=== PATIENT | male | born 1955 | race Caucasian/White ===

== ENCOUNTER 2016-09-17 21:58 | Observation (INO) | payer BC ==
[2016-09-17 22:36] LABS: Appearance,Urine Clear (Clear); Bilirubin,Urine Negative (Negative); Glucose,Urine (UA) 4+ (Negative); Ketones,Urine Negative (Negative); Leukocyte Esterase,Urine Moderate (Negative); Mucus,Urine Rare /hpf; Nitrite,Urine Negative (Negative); Particle Count 2298; Protein,Urine 2+ (Negative); RBC,Urine 34 /hpf (0-5); Specific Gravity,Urine 1.009 (1.001-1.035); UA Billing (MACRO vs. MICRO) MICRO; Urobilinogen,Urine <2.0 mg/dL (<2.0); WBC,Urine 18 /hpf (0-5)
[2016-09-17 22:49] LABS: Glucose,Whole Blood 422 mg/dL (75-99)
[2016-09-17] MEDS ORDERED: SODIUM CHLORIDE 0.9% 1,000 ML IV ONE (22:51)
--- NOTE | 2016-09-17 22:51 | ED ---
Male Urogenital HPI - General Chief complaint: Urogenital Stated complaint: trouble urinating Time Seen by Provider: 09/17/16 22:13 Source: patient, RN notes reviewed Mode of arrival: ambulatory Limitations: no limitations - History of Present Illness Initial comments: 60-year-old male presents emergency Department chief complaint dysuria or incontinence days. Patient states that he's had some hesitancy and some dribbling noted. He has no known state issues. Patient states she has no abdominal pain no flank pain denies fever or chills. Patient states that today he felt that it was more difficult to urinate though he still able to urinate. Patient states he has no noticeable hematuria. Patient states he did pass kidney stone years ago states it was painful at that time. Patient states he has not had his prostate checked recently toys had a checkup past with a normal PSA. - Related Data Home Medications Medication Instructions Recorded Confirmed ALPRAZolam [Xanax] 0.25 mg PO DAILY PRN 10/01/15 09/17/16 Allergies Allergy/AdvReac Type Severity Reaction Status Date / Time No Known Allergies Allergy Verified 09/17/16 22:32 Review of Systems ROS Statement: Those systems with pertinent positive or pertinent negative responses have been documented in the HPI. ROS Other: All systems not noted in ROS Statement are negative. Past Medical History Past Medical History: No Reported History History of Any Multi-Drug Resistant Organisms: None Reported Past Surgical History: Hernia Repair Additional Past Surgical History / Comment(s): cyst removed,lypoma removal Past Psychological History: Anxiety Smoking Status: Former smoker Past Alcohol Use History: Rare Past Drug Use History: None Reported General Exam Limitations: no limitations General appearance: alert, in no apparent distress Head exam: Present: atraumatic, normocephalic, normal inspection Neck exam: Present: normal inspection, full ROM. Absent: tenderness, meningismus, lymphadenopathy Respiratory exam: Present: normal lung sounds bilaterally. Absent: respiratory distress, wheezes, rales, rhonchi, stridor Cardiovascular Exam: Present: regular rate, normal rhythm, normal heart sounds. Absent: systolic murmur, diastolic murmur, rubs, gallop, clicks GI/Abdominal exam: Present: soft, normal bowel sounds. Absent: distended, tenderness, guarding, rebound, rigid Back exam: Absent: CVA tenderness (R), CVA tenderness (L) Neurological exam: Present: alert, oriented X3, CN II-XII intact Skin exam: Present: warm, dry, intact, normal color. Absent: rash Course Vital Signs 09/17/16 21:59 Temperature 97.0 F L Pulse Rate 88 Respiratory 18 Rate Blood Pressure 199/116 O2 Sat by Pulse 96 Oximetry Medical Decision Making - Medical Decision Making 60-year-old male presented for dysuria. Patient was found have 4+ glucose and urine. Patient's blood sugars for 20 Set diabetic. Patiently For suspected UTI and new onset diabetic. - Lab Data Result diagrams: 09/17/16 22:58 09/17/16 22:58 Lab Results 09/17/16 09/17/16 09/17/16 Range/Units 22:16 22:45 22:58 WBC 10.0 (3.8-10.6) k/uL RBC 5.07 (4.30-5.90) m/uL Hgb 15.8 (13.0-17.5) gm/dL Hct 48.1 (39.0-53.0) % MCV 94.9 (80.0-100.0) fL MCH 31.1 (25.0-35.0) pg MCHC 32.8 (31.0-37.0) g/dL RDW 13.8 (11.5-15.5) % Plt Count 267 (150-450) k/uL Neutrophils % 76 % Lymphocytes % 15 % Monocytes % 4 % Eosinophils % 3 % Basophils % 1 % Neutrophils # 7.6 (1.3-7.7) k/uL Lymphocytes # 1.5 (1.0-4.8) k/uL Monocytes # 0.4 (0-1.0) k/uL Eosinophils # 0.3 (0-0.7) k/uL Basophils # 0.1 (0-0.2) k/uL Sodium (137-145) mmol/L Potassium (3.5-5.1) mmol/L Chloride (98-107) mmol/L Carbon Dioxide (22-30) mmol/L Anion Gap mmol/L BUN (9-20) mg/dL Creatinine (0.66-1.25) mg/dL Est GFR (MDRD) Af Amer (>60 ml/min/1.73 sqM) Est GFR (MDRD) Non-Af (>60 ml/min/1.73 sqM) Glucose (74-99) mg/dL POC Glucose (mg/dL) 422 H (75-99) mg/dL POC Glu Deck Builder ID Madhuri Jacob Calcium (8.4-10.2) mg/dL Total Bilirubin (0.2-1.3) mg/dL AST (17-59) U/L ALT (21-72) U/L Alkaline Phosphatase (38-126) U/L Total Protein (6.3-8.2) g/dL Albumin (3.5-5.0) g/dL Urine Color Yellow Urine Appearance Clear (Clear) Urine pH 6.0 (5.0-8.0) Ur Specific [place] 1.009 (1.001-1.035) Urine Protein 2+ H (Negative) Urine Glucose (UA) 4+ H (Negative) Urine Ketones Negative (Negative) Urine Blood Moderate H (Negative) Urine Nitrate Negative (Negative) Urine Bilirubin Negative (Negative) Urine Urobilinogen <2.0 (<2.0) mg/dL Ur Leukocyte Esterase Moderate H (Negative) Urine RBC 34 H (0-5) /hpf Urine WBC 18 H (0-5) /hpf Urine Mucus Rare H (None) /hpf 09/17/16 Range/Units 22:58 WBC (3.8-10.6) k/uL RBC (4.30-5.90) m/uL Hgb (13.0-17.5) gm/dL Hct (39.0-53.0) % MCV (80.0-100.0) fL MCH (25.0-35.0) pg MCHC (31.0-37.0) g/dL RDW (11.5-15.5) % Plt Count (150-450) k/uL Neutrophils % % Lymphocytes % % Monocytes % % Eosinophils % % Basophils % % Neutrophils # (1.3-7.7) k/uL Lymphocytes # (1.0-4.8) k/uL Monocytes # (0-1.0) k/uL Eosinophils # (0-0.7) k/uL Basophils # (0-0.2) k/uL Sodium 137 (137-145) mmol/L Potassium 4.4 (3.5-5.1) mmol/L Chloride 101 (98-107) mmol/L Carbon Dioxide 23 (22-30) mmol/L Anion Gap 13 mmol/L BUN 17 (9-20) mg/dL Creatinine 1.00 (0.66-1.25) mg/dL Est GFR (MDRD) Af Amer >60 (>60 ml/min/1.73 sqM) Est GFR (MDRD) Non-Af >60 (>60 ml/min/1.73 sqM) Glucose 398 H (74-99) mg/dL POC Glucose (mg/dL) (75-99) mg/dL POC Glu Deck Builder ID Calcium 9.1 (8.4-10.2) mg/dL Total Bilirubin 0.6 (0.2-1.3) mg/dL AST 14 L (17-59) U/L ALT 25 (21-72) U/L Alkaline Phosphatase 78 (38-126) U/L Total Protein 6.8 (6.3-8.2) g/dL Albumin 4.0 (3.5-5.0) g/dL Urine Color Urine Appearance (Clear) Urine pH (5.0-8.0) Ur Specific [place] (1.001-1.035) Urine Protein (Negative) Urine Glucose (UA) (Negative) Urine Ketones (Negative) Urine Blood (Negative) Urine Nitrate (Negative) Urine Bilirubin (Negative) Urine Urobilinogen (<2.0) mg/dL Ur Leukocyte Esterase (Negative) Urine RBC (0-5) /hpf Urine WBC (0-5) /hpf Urine Mucus (None) /hpf Disposition Clinical Impression: UTI (urinary tract infection), Diabetes mellitus, new onset Disposition: ADMITTED IP TO THIS HOSP Condition: Stable
[2016-09-17 23:07] LABS: Basophils # (A) 0.1 k/uL (0-0.2); Basophils % (A) 1 %; CH 31.5; CHCM 33.3; Eosinophils # (A) 0.3 k/uL (0-0.7); Eosinophils % (A) 3 %; HCT 48.1 % (39.0-53.0); HDW 2.92; HGB 15.8 gm/dL (13.0-17.5); Luc # (Auto) 0.15; Luc % (Auto) 2; Lymphocytes # (A) 1.5 k/uL (1.0-4.8); Lymphocytes % (A) 15 %; MCH 31.1 pg (25.0-35.0); MCHC 32.8 g/dL (31.0-37.0); MCV 94.9 fL (80.0-100.0); Mean Platelet Volume 6.4; Monocytes # (A) 0.4 k/uL (0-1.0); Monocytes % (A) 4 %; Neutrophils # (A) 7.6 k/uL (1.3-7.7); Neutrophils % (A) 76 %; RBC 5.07 m/uL (4.30-5.90); RDW 13.8 % (11.5-15.5); WBC (Perox) 10.41
[2016-09-17 23:16] LABS: ALT 25 U/L (21-72); AST 14 U/L (17-59); Alkaline Phosphatase 78 U/L (38-126); Anion Gap 13 mmol/L; Blood Urea Nitrogen 17 mg/dL (9-20); Calcium 9.1 mg/dL (8.4-10.2); Carbon Dioxide 23 mmol/L (22-30); Chloride 101 mmol/L (98-107); Glucose 398 mg/dL (74-99); Non-African American GFR(MDRD) >60 (>60 ml/min/1.73 sqM); Potassium 4.4 mmol/L (3.5-5.1); Sodium 137 mmol/L (137-145); Total Bilirubin 0.6 mg/dL (0.2-1.3); Total Protein 6.8 g/dL (6.3-8.2)
[2016-09-17] MEDS ORDERED: NALOXONE 0.4 MG/ML 1 ML VIAL IV PRN (23:52)
[2016-09-17] MEDS ORDERED: ACETAMINOPHEN TAB 325 MG TAB PO PRN (23:52)
[2016-09-17] MEDS ORDERED: ONDANSETRON 4 MG/2 ML VIAL IVP PRN (23:52)
[2016-09-17] MEDS ORDERED: metFORMIN 500 MG TAB PO STA (23:55)
[2016-09-18 00:18] LABS: Glucose,Whole Blood 337 mg/dL (75-99)
[2016-09-18] MEDS ORDERED: LEVOFLOXACIN 750MG-D5W PMX 750 MG in DEXTROSE/WATER 1 150ML.BAG IVPB STA (00:43)
[2016-09-18 01:18] VITALS: BMI 48.8
[2016-09-18] MEDS: SODIUM CHLORIDE 0.9% 1,000 ML IV SCH ×2 (05:55→08:27)
[2016-09-18 07:30] LABS: Glucose,Whole Blood 284 mg/dL (75-99)
[2016-09-18 07:34] LABS: Hemoglobin A1C 10.3 % (4.2-6.1)
[2016-09-18] MEDS: INSULIN LISPRO (humaLOG) 300 UNIT/3 ML VIAL SQ SCH ×3 (08:26→18:50)
[2016-09-18 09:22] VITALS: BP 140/90; PULSE 87; RESP 15; TEMP 98.1
[2016-09-18] MEDS ORDERED: TAMSULOSIN 0.4 MG CAP.ER.24H PO SCH (11:00)
[2016-09-18 12:02] LABS: Glucose,Whole Blood 243 mg/dL (75-99)
--- NOTE | 2016-09-18 15:03 | HP ---
H&P AND DISCHARGE SUMMARY DATE OF ADMISSION: Patient is a 60-year-old who came in with dysuria and patient has urinary urgency and urinary frequency and hesitancy with dribbling urine, and patient ( ) ultrasound of the urinary bladder. Patient is actually retaining urine. Patient probably has benign prostatic hypertrophy. I ordered ( ) outpatient prostate exam. Patient will be started on tamsulosin. Tamsulosin takes about 4 days to be effective. In the meantime, patient will be taught how to do straight catheterization. Patient will be discharged. Patient probably has urinary tract infection, too. Patient has highly elevated WBC in the urine. Patient responded well to ceftriaxone. Patient will be discharged on ciprofloxacin. Patient does not know if he is diabetic. Patient has highly elevated blood sugars with hemoglobin A1c of 10. Patient tolerated ( ) metformin very well. I will go ahead and discharge him on ( ) mg twice a day of metformin. Patient will be asked to take his blood sugars daily twice a day. Patient may need a second diabetic medication. Patient will be asked to follow up with his primary care physician in 3 to 5 days. If patient continues to have UTI-like symptoms, ( ) needs to be considered at that time. Home medications include alprazolam. ROS: All other systems were reviewed and were negative. ALLERGIES: NO KNOWN DRUG ALLERGIES. PAST MEDICAL HISTORY: None. SURGICAL HISTORY: Hernia repair. SOCIAL HISTORY: Former smoker. Quit smoking years ago. Denied any alcohol abuse or any drug abuse. PAST PSYCHIATRIC HISTORY: Anxiety. FAMILY HISTORY: Denied and family history of hypertension, diabetes mellitus. PHYSICAL EXAMINATION: VITAL SIGNS: Temperature 97.2, pulse of 88, respiratory rate of 18. Blood pressure is 150/90. Saturating at 96% on room air. GENERAL: Very pleasant obese gentleman. Alert and oriented x3. HEENT: Pupils are round and equally reacting to light. EOMI. No scleral icterus. No conjunctival pallor. Normocephalic, atraumatic. No pharyngeal erythema. No thyromegaly. CARDIOVASCULAR: S1 and S2 present. No murmurs, rubs, or gallops. PULMONARY: Chest is clear to auscultation, no wheezing or crackles. ABDOMEN: Soft, nontender, nondistended, normoactive bowel sounds. No palpable organomegaly. MUSCULOSKELETAL: No joint swelling or deformity. EXTREMITIES: No cyanosis, clubbing, or pedal edema. NEUROLOGICAL: Gross neurological examination did not reveal any focal deficits. SKIN: No rashes. LABORATORY DATA: Significant for elevated blood glucose of 398. Patient has mildly elevated creatinine of 1.2, which improved at this point of time. The urine as mentioned above. He has elevated RBC and WBC, 2+ protein, 4+ glucose. He does not have any leukocytosis or ( ). ASSESSMENT AND PLAN: 1. Newly diagnosed diabetes mellitus. Patient will be started on metformin. Patient may need a second medication. Patient's hemoglobin A1C is 10. 2. Possible benign prostatic hypertrophy. Management as mentioned above. 3. Possible urinary tract infection. Will follow up urine cultures. Patient will be started on ciprofloxacin for UTI symptoms. 4. Obesity. Counseling was provided. 5. Acute renal failure secondary to obstructive uropathy, probably, which has gotten better actually with IV fluids. Patient will do straight catheterization which will address the obstructive uropathy issue. Patient may has a prerenal component of renal failure or prerenal azotemia, which improved with IV fluids. The patient will follow up with his primary care physician in 3 to 5 days. Activity as tolerated. Diabetic 1800-calorie diet. Blood sugar checks twice a day. Patient will be discharged today. This dictation is both H&P and discharge summary. [facility]
[2016-09-18 16:56] LABS: Glucose,Whole Blood 192 mg/dL (75-99)
== END 2016-09-18 18:30 | disposition home or self-care (01) ==
LOC: EC 21:58 → INTOOBSV 23:49 → 3SUR 23:49
PROVIDERS: ADMIT Hospitalist; ATTEND Hospitalist
DX: E11.65 Type 2 diabetes mellitus with hyperglycemia (principal); N39.0 Urinary tract infection, site not specified; N17.9 Acute kidney failure, unspecified; N13.9 Obstructive and reflux uropathy, unspecified; F41.9 Anxiety disorder, unspecified; Z87.442 Personal history of urinary calculi; Z87.891 Personal history of nicotine dependence; E66.9 Obesity, unspecified
CPT/HCPCS: 96361; 99284; 51798; 36415 ×2; 80053; 83036; 85025; 81001; 87491; 87591; 87086; G0378 ×2; G0103; J1956; 96365

== ENCOUNTER → 2018-10-18 | Outpatient (CLI) | payer BC ==
--- NOTE | 2018-10-18 08:59 | US ---
EXAMINATION TYPE: US venous doppler duplex LE BI DATE OF EXAM: 10/18/2018 7:39 AM COMPARISON: NONE CLINICAL HISTORY: 62-year-old male R22.43 Localized swelling, mass and lump, lower li. Edema, discolo ration left lower leg SIDE PERFORMED: bilateral TECHNIQUE: The lower extremity deep venous system is examined utilizing real time linear array sonog ana with graded compression, doppler sonography and color-flow sonography. VESSELS IMAGED: External Iliac Vein (EIV) Common Femoral Vein Deep Femoral Vein Greater Saphenous Vein * Femoral Vein Popliteal Vein Small Saphenous Vein * Proximal Calf Veins (* superficial vessels) Right Leg: No evidence of DVT as visualized Left Leg: No evidence of DVT as visualized IMPRESSION: No evidence for DVT within the bilateral lower extremities imaged from the groin to the upper calves.
== END ==
LOC: RADUSWWP 07:36
PROVIDERS: ATTEND Family Medicine
DX: R22.43 Localized swelling, mass and lump, lower limb, bilateral (principal); R05 Cough; Z78.9 Other specified health status
CPT/HCPCS: 93970

== ENCOUNTER 2023-08-18 15:03 | Emergency (ER) | payer BC ==
[2023-08-18 15:19] VITALS: BP 171/102; PULSE 121; RESP 16; TEMP 97.8
[2023-08-18 15:45] LABS: Appearance,Urine Clear (Clear); Bilirubin,Urine Negative (Negative); Blood,Urine Large (Negative); Color,Urine Yellow; Glucose,Urine (UA) Negative (Negative); Ketones,Urine Negative (Negative); Leukocyte Esterase,Urine Negative (Negative); Mucus,Urine Rare /hpf; Nitrite,Urine Negative (Negative); Protein,Urine 1+ (Negative); RBC,Urine >182 /hpf (0-5); Specific Gravity,Urine 1.021 (1.001-1.035); Squamous Epithelial Cell,Urine <1 /hpf (0-4); WBC,Urine 1 /hpf (0-5)
--- NOTE | 2023-08-18 15:45 | ED ---
General Adult HPI - General Source: patient, RN notes reviewed Mode of arrival: ambulatory Limitations: no limitations <Marichuy Germain - Last Filed: 08/18/23 15:44> <Paddy Rodrigues - Last Filed: 08/18/23 19:58> - General Chief complaint: Urogenital Stated complaint: lower abd pain Time Seen by Provider: 08/18/23 15:44 - History of Present Illness Initial comments: This is a 67 year old male who presents to the emergency department for left flank pain and lower abdominal pain. Reports dark urine as well. He has a hx of kidney stones and states that this feels the same. (Marichuy Germain) This is a 67-year-old male presents emergency Department complaining of left flank pain and lower abdominal pain. Patient states she has a history of kidney stones per patient states the kidney stone pain felt exactly like this in the past. Patient denies any hematuria or dysuria. Patient denies any fever chills per patient denies any nausea vomiting. Patient denies any other issues at this time. (Paddy Rodrigues) - Related Data Home Medications Medication Instructions Recorded Confirmed ALPRAZolam [Xanax] 0.25 mg PO DAILY PRN 10/01/15 09/17/16 Previous Rx's Medication Instructions Recorded Ciprofloxacin HCl [Cipro] 500 mg PO Q12HR #10 tablet 09/18/16 Tamsulosin HCl [Flomax] 0.4 mg PO DAILY #30 cap.er.24h 09/18/16 metFORMIN HCL [Glucophage] 1,000 mg PO BID #60 tab 09/18/16 Ketorolac [Toradol] 10 mg PO Q6HR #15 tab 08/18/23 Tamsulosin [Flomax] 0.4 mg PO DAILY #10 cap 08/18/23 Allergies Allergy/AdvReac Type Severity Reaction Status Date / Time No Known Allergies Allergy Verified 08/18/23 15:08 Review of Systems ROS Other: All systems not noted in ROS Statement are negative. <Marichuy Germain - Last Filed: 08/18/23 15:44> ROS Other: All systems not noted in ROS Statement are negative. <Paddy Rodrigues - Last Filed: 08/18/23 19:58> ROS Statement: Those systems with pertinent positive or pertinent negative responses have been documented in the HPI. Past Medical History Past Medical History: No Reported History History of Any Multi-Drug Resistant Organisms: None Reported Past Surgical History: Hernia Repair Additional Past Surgical History / Comment(s): cyst removed,lypoma removal Past Anesthesia/Blood Transfusion Reactions: No Reported Reaction Past Psychological History: Anxiety Past Alcohol Use History: Rare Past Drug Use History: None Reported - Past Family History Father Family Medical History: No Reported History <Marichuy Germain - Last Filed: 08/18/23 15:44> General Exam Limitations: no limitations <Marichuy Germain - Last Filed: 08/18/23 15:44> <Paddy Rodrigues - Last Filed: 08/18/23 19:58> - General Exam Comments Initial Comments: Visual Physical Exam Vital signs reviewed General: Well-appearing, nontoxic, no acute distress. Head: Normocephalic, atraumatic Eyes: PERRLA, EOMI ENT: Airway patent Chest: Nonlabored breathing Skin: No visual rash, normal skin tone Neuro: Alert and oriented 3 Musculoskeletal: No gross abnormalities (Marichuy Germain) GENERAL: Patient is well-developed and well-nourished. Patient is nontoxic and well- hydrated and is in mild distress. ENT: Neck is soft and supple. No significant lymphadenopathy is noted. Oropharynx is clear. Moist mucous membranes. Neck has full range of motion without eliciting any pain. EYES: The sclera were anicteric and conjunctiva were pink and moist. Extraocular movements were intact and pupils were equal round and reactive to light. Eyelids were unremarkable. ABDOMEN: Soft and nontender with normal bowel sounds. SKIN: Skin is clear with no lesions or rashes and otherwise unremarkable. NEUROLOGIC: Patient is alert and oriented x3. Cranial nerves II through XII are grossly int act. Motor and sensory are also intact. Normal speech, volume and content. Symmetrical smile. MUSCULOSKELETAL: Normal extremities with adequate strength and full range of motion. LYMPHATICS: No significant lymphadenopathy is noted PSYCHIATRIC: Normal psychiatric evaluation. (Paddy Rodrigues) Course Vital Signs 08/18/23 15:05 Temperature 97.8 F Pulse Rate 121 H Respiratory 16 Rate Blood Pressure 171/102 O2 Sat by Pulse 92 L Oximetry Medical Decision Making <Marichuy Germain - Last Filed: 08/18/23 15:44> - Lab Data Result diagrams: 08/18/23 15:30 08/18/23 15:30 <Paddy Rodrigues - Last Filed: 08/18/23 19:58> - Medical Decision Making I performed the QuickNote portion of this chart. Signed Marichuy Germain PA-C. (Marichuy Germain) Was pt. sent in by a medical professional or institution ([facility], [facility], urgent care, hospital, or alf...) When possible be specific @ -No Did you speak to anyone other than the patient for history (EMS, parent, family, police, friend...)? What history was obtained from this source @ -No Did you review nursing and triage notes (agree or disagree)? Why? @ -I reviewed and agree with nursing and triage notes Were old charts reviewed (outside hosp., previous admission, EMS record, old EKG, old radiological studies, urgent care reports/EKG's, alf records)? Report findings @ -Reviewed prior charts in prior labwork on this patient Differential Diagnosis (chest pain, altered mental status, abdominal pain women, abdominal pain men, vaginal bleeding, weakness, fever, dyspnea, syncope, headache, dizziness, GI bleed, back pain, seizure, CVA, palpatations, mental health, musculoskeletal)? @ -Differential Abdominal Pain Men: Appendicitis, cholecystitis, diverticulosis, ischemic bowel, pancreatitis, hepatitis, UTI, gastroenteritis, AAA, incarcerated hernia, bowel obstruction, constipation, inflammatory bowel, hepatitis, peptic ulcer disease, splenic infarction, perforated viscus, testicular torsion, this is not meant to be an all-inclusive list EKG interpreted by me (3pts min.). @ -As above X-rays interpreted by me (1pt min.). @ -None done CT interpreted by me (1pt min.). @ -Computed tomography scan shows kidney stone with hydronephrosis 7 mm U/S interpreted by me (1pt. min.). @ -None done What testing was considered but not performed or refused? (CT, X-rays, U/S, labs)? Why? @ -None What meds were considered but not given or refused? Why? @ -None Did you discuss the management of the patient with other professionals (professionals i.e. Dr., PA, [facility], lab, RT, psych nurse, family welfare social work professor, strategic business development, teacher, operational intelligence officer, family service caseworker)? Give summary @ -No Was smoking cessation discussed for >3mins.? @ -No Was critical care preformed (if so, how long)? @ -No Were there social determinants of health that impacted care today? How? (Homelessness, low income, unemployed, alcoholism, drug addiction, transportation, low edu. Level, literacy, decrease access to med. care, long term, rehab)? @ -No Was there de-escalation of care discussed even if they declined (Discuss DNR or withdrawal of care, Hospice)? DNR status @ -No What co-morbidities impacted this encounter? (DM, HTN, Smoking, COPD, CAD, Cancer, CVA, ARF, Chemo, Hep., AIDS, mental health diagnosis, sleep apnea, morbid obesity)? @ -None Was patient admitted / discharged? Hospital course, mention meds given and route, prescriptions, significant lab abnormalities, going to OR and other pertinent info. @ -Patient remained in the emergency department waiting room the whole time he was here he did get an IV and some Toradol I discussed the results with the patient and he understood that he needs to follow up with urology I will send the patient home with Flomax and Toradol Undiagnosed new problem with uncertain prognosis? @ -No Drug Therapy requiring intensive monitoring for toxicity (Heparin, Nitro, Insulin, Cardizem)? @ -No Were any procedures done? @ -No Diagnosis/symptom? @ -Kidney stone Acute, or Chronic, or Acute on Chronic? @ -Acute Uncomplicated (without systemic symptoms) or Complicated (systemic symptoms)? @ -Complicated Side effects of treatment? @ -No Exacerbation, Progression, or Severe Exacerbation? @ -No Poses a threat to life or bodily function? How? (Chest pain, [place], [place], pneumonia, PE, COPD, DKA, ARF, appy, cholecystitis, CVA, Diverticulitis, Homicidal, Suicidal, threat to staff... and all critical care pts) @ -No (Paddy Rodrigues) - Lab Data Lab Results 08/18/23 08/18/23 08/18/23 Range/Units 15:30 15:30 15:30 WBC 9.9 (3.8-10.6) k/uL RBC 5.50 (4.30-5.90) m/uL Hgb 17.9 H (13.0-17.5) gm/dL Hct 54.3 H (39.0-53.0) % MCV 98.7 (80.0-100.0) fL MCH 32.5 (25.0-35.0) pg MCHC 32.9 (31.0-37.0) g/dL RDW 14.5 (11.5-15.5) % Plt Count 189 (150-450) k/uL MPV 7.1 Neutrophils % 80 % Lymphocytes % 11 % Monocytes % 7 % Eosinophils % 1 % Basophils % 1 % Neutrophils # 7.9 H (1.3-7.7) k/uL Lymphocytes # 1.1 (1.0-4.8) k/uL Monocytes # 0.7 (0-1.0) k/uL Eosinophils # 0.1 (0-0.7) k/uL Basophils # 0.1 (0-0.2) k/uL Sodium 140 (137-145) mmol/L Potassium 3.9 (3.5-5.1) mmol/L Chloride 97 L (98-107) mmol/L Carbon Dioxide 32 H (22-30) mmol/L Anion Gap 11 mmol/L BUN 14 (9-20) mg/dL Creatinine 0.77 (0.66-1.25) mg/dL Est GFR (CKD-EPI)AfAm >90 (>60 ml/min/1.73 sqM) Est GFR (CKD-EPI)NonAf >90 (>60 ml/min/1.73 sqM) Glucose 78 (74-99) mg/dL Plasma Lactic Acid [place] 1.9 (0.7-2.0) mmol/L Calcium 9.3 (8.4-10.2) mg/dL Total Bilirubin 1.4 H (0.2-1.3) mg/dL AST 23 (17-59) U/L ALT 17 (4-49) U/L Alkaline Phosphatase 94 (38-126) U/L Total Protein 6.9 (6.3-8.2) g/dL Albumin 4.0 (3.5-5.0) g/dL Urine Color Urine Appearance (Clear) Urine pH (5.0-8.0) Ur Specific [place] (1.001-1.035) Urine Protein (Negative) Urine Glucose (UA) (Negative) Urine Ketones (Negative) Urine Blood (Negative) Urine Nitrite (Negative) Urine Bilirubin (Negative) Urine Urobilinogen (<2.0) mg/dL Ur Leukocyte Esterase (Negative) Urine RBC (0-5) /hpf Urine WBC (0-5) /hpf Ur Squamous Epith Cells (0-4) /hpf Urine Mucus (None) /hpf 08/18/23 Range/Units 15:30 WBC (3.8-10.6) k/uL RBC (4.30-5.90) m/uL Hgb (13.0-17.5) gm/dL Hct (39.0-53.0) % MCV (80.0-100.0) fL MCH (25.0-35.0) pg MCHC (31.0-37.0) g/dL RDW (11.5-15.5) % Plt Count (150-450) k/uL MPV Neutrophils % % Lymphocytes % % Monocytes % % Eosinophils % % Basophils % % Neutrophils # (1.3-7.7) k/uL Lymphocytes # (1.0-4.8) k/uL Monocytes # (0-1.0) k/uL Eosinophils # (0-0.7) k/uL Basophils # (0-0.2) k/uL Sodium (137-145) mmol/L Potassium (3.5-5.1) mmol/L Chloride (98-107) mmol/L Carbon Dioxide (22-30) mmol/L Anion Gap mmol/L BUN (9-20) mg/dL Creatinine (0.66-1.25) mg/dL Est GFR (CKD-EPI)AfAm (>60 ml/min/1.73 sqM) Est GFR (CKD-EPI)NonAf (>60 ml/min/1.73 sqM) Glucose (74-99) mg/dL Plasma Lactic Acid [place] (0.7-2.0) mmol/L Calcium (8.4-10.2) mg/dL Total Bilirubin (0.2-1.3) mg/dL AST (17-59) U/L ALT (4-49) U/L Alkaline Phosphatase (38-126) U/L Total Protein (6.3-8.2) g/dL Albumin (3.5-5.0) g/dL Urine Color Yellow Urine Appearance Clear (Clear) Urine pH 8.0 (5.0-8.0) Ur Specific [place] 1.021 (1.001-1.035) Urine Protein 1+ H (Negative) Urine Glucose (UA) Negative (Negative) Urine Ketones Negative (Negative) Urine Blood Large H (Negative) Urine Nitrite Negative (Negative) Urine Bilirubin Negative (Negative) Urine Urobilinogen 2.0 (<2.0) mg/dL Ur Leukocyte Esterase Negative (Negative) Urine RBC >182 H (0-5) /hpf Urine WBC 1 (0-5) /hpf Ur Squamous Epith Cells <1 (0-4) /hpf Urine Mucus Rare H (None) /hpf Disposition <Marichuy Germain - Last Filed: 08/18/23 15:44> Is patient prescribed a controlled substance at d/c from ED?: No Time of Disposition: 19:57 <Paddy Rodrigues - Last Filed: 08/18/23 19:58> Clinical Impression: Kidney stone Disposition: HOME SELF-CARE Condition: Good Instructions (If sedation given, give patient instructions): Kidney Stones (ED) Prescriptions: Tamsulosin [Flomax] 0.4 mg PO DAILY #10 cap Ketorolac [Toradol] 10 mg PO Q6HR #15 tab Referrals: Dennis Bertrand MD [Primary Care Provider] - 1-2 days
[2023-08-18 16:26] LABS: Basophils # (A) 0.1 k/uL (0-0.2); Basophils % (A) 1 %; Eosinophils # (A) 0.1 k/uL (0-0.7); Eosinophils % (A) 1 %; HCT 54.3 % (39.0-53.0); HGB 17.9 gm/dL (13.0-17.5); Lymphocytes # (A) 1.1 k/uL (1.0-4.8); Lymphocytes % (A) 11 %; MCH 32.5 pg (25.0-35.0); MCHC 32.9 g/dL (31.0-37.0); MCV 98.7 fL (80.0-100.0); Mean Platelet Volume 7.1; Monocytes # (A) 0.7 k/uL (0-1.0); Monocytes % (A) 7 %; Neutrophils # (A) 7.9 k/uL (1.3-7.7); Neutrophils % (A) 80 %; Platelet Count 189 k/uL (150-450); RDW 14.5 % (11.5-15.5); WBC 9.9 k/uL (3.8-10.6)
--- NOTE | 2023-08-18 16:26 | CT ---
EXAMINATION TYPE: CT abdomen pelvis wo con DATE OF EXAM: 08/18/2023 HISTORY: c/o left sided flank pain, dark urine and hx of stones CT DLP: 2837.4 mGycm. Automated Exposure Control for Dose Reduction was Utilized. TECHNIQUE: CT scan of the abdomen and pelvis is performed without oral or IV contrast. COMPARISON: NONE FINDINGS: Within the limitations of a non-contrast study, the following observations are made. LUNG BASES: Coronary artery calcification is present. There is dependent atelectasis and/or scarring. LIVER/GB: Tiny intraluminal gallstone axial image 47. PANCREAS: Moderate fat replaced atrophy. SPLEEN: No significant abnormality is seen. ADRENALS: No significant abnormality is seen. KIDNEYS: Several simple-appearing thin-walled cysts scattered throughout the right kidney. No right-s ided renal calculi or hydronephrosis. Left kidney has at least 7 calculi. There is 16mm calculus post eriorly in the mid pole level coronal image 80. There is mild to moderate left-sided hydronephrosis w ith 2 mm proximal left ureter calculus axial image 88 and distal to this larger obstructing 7 mm calc ulus axial image 95 corresponding to coronal image 72. No intraluminal calculus in the poorly distend ed bladder. BOWEL: Colonic diverticulosis greatest in the sigmoid colon. No CT evidence for acute diverticulitis. No abnormal small or large bowel dilatation. GENITAL ORGANS: Prostate gland mildly enlarged in size. LYMPH NODES: No greater than 1cm abdominal or pelvic lymph nodes are appreciated. OSSEOUS STRUCTURES: Grade 1 anterolisthesis L4 on L5. Advanced disc space narrowing at L5-S1 level. B ridging osteophytes in the thoracic spine. Scattered osseous hemangiomas in the thoracolumbar spine. OTHER: Mild calcified plaque of the aorta extends into branch vessels IMPRESSION: Multiple left-sided renal calculi. There is [id number] left-sided hydronephrosis du e to obstructing 7 mm calculus in the proximal left ureter.
[2023-08-18 16:46] LABS: ALT 17 U/L (4-49); AST 23 U/L (17-59); African American GFR (CKD) >90 (>60 ml/min/1.73 sqM); Alkaline Phosphatase 94 U/L (38-126); Anion Gap 11 mmol/L; Blood Urea Nitrogen 14 mg/dL (9-20); Calcium 9.3 mg/dL (8.4-10.2); Carbon Dioxide 32 mmol/L (22-30); Chloride 97 mmol/L (98-107); Glucose 78 mg/dL (74-99); Non-African American GFR(CKD) >90 (>60 ml/min/1.73 sqM); Potassium 3.9 mmol/L (3.5-5.1); Sodium 140 mmol/L (137-145); Total Bilirubin 1.4 mg/dL (0.2-1.3); Total Protein 6.9 g/dL (6.3-8.2)
[2023-08-18] MEDS ORDERED: KETOROLAC 15 MG/ML 1 ML VIAL IVP STA (19:33)
[2023-08-18] MEDS ORDERED: ONDANSETRON 4 MG ODT STARTER PACK 2 TAB BTL PO STA (20:08)
== END 2023-08-18 20:13 | disposition home or self-care (01) ==
LOC: EC 15:03
DX: N13.2 Hydronephrosis with renal and ureteral calculous obstruction (principal); F41.9 Anxiety disorder, unspecified; Z79.899 Other long term (current) drug therapy
CPT/HCPCS: 36415; 80053; 83605; 85025; 81001; 74176; 99284; 96374; J1885; S0119

== ENCOUNTER 2023-08-31 11:27 | Day surgery (SDC) | payer MEDICARE, BC ==
[~2023-08-31 11:27] MED LIST: DEXAMETHASONE SOD PHOSPHATE 4 MG/ML 1 ML VIAL IV ONE; LACTATED RINGERS 1,000 ML IV SCH; ONDANSETRON 4 MG/2 ML VIAL IVP ONE; ceFAZolin 3 GM in SODIUM CHLORIDE 0.9% 100 ML IVPB PRN
--- NOTE | 2023-08-31 11:47 | P.HPIHPCON ---
History of Present Illness H&P Date: 08/31/23 Chief Complaint: left ureteral stone This is a 67 yo female with hx of 7 mm left sided ureteral stone. She is symptomatic from her stone. Option of left sided URS vs ESWL was discussed in details. Risk and benefit of each approach was discussed. She agreed to proceed with left sided URS with holmium laser, stone basketting and stent. Aware of risk which include but not limited to bleeding, infection and injury to the ureter. Of note patient also has significant stone burden in the lower pole. discussed It will be difficult to remove lower pole stone with URS, discussed with him the alternative of doing a left-sided PCNL, he declined at this point he wants to observe his lower pole stones. He understood all the risk and agreed to proceed with left-sided ureteroscopy, with holmium laser lithotripsy, stone basketing and stent insertion Consent for Procedure: I have explained the operation/procedure to the patient, including the risks, benefits, side effects, alternative therapies (including not receiving the proposed treatment or service), the likelihood of the patient achieving his/her goals, and potential recuperation problems for the procedure/sedation/analgesia, as well as any blood products, if indicated. I also explained to the patient the risks, benefits and side effects of the alternatives, as well as the risks related to not receiving the proposed procedure, care, treatment, or services. Past Medical History Past Medical History: Diabetes Mellitus, Hyperlipidemia, Sleep Apnea/CPAP/BIPAP Additional Past Medical History / Comment(s): recent kidney stones, seen recently in for, supposed to use CPAP, venous insufficiency left leg-bigger than right leg History of Any Multi-Drug Resistant Organisms: None Reported Past Surgical History: Hernia Repair Additional Past Surgical History / Comment(s): cyst removed,lipoma removal, lithotripsy Past Anesthesia/Blood Transfusion Reactions: No Reported Reaction Smoking Status: Former smoker - Past Family History Father Family Medical History: No Reported History Medications and Allergies Home Medications Medication Instructions Recorded Confirmed Type Tamsulosin [Flomax] 0.4 mg PO DAILY #10 cap 08/18/23 08/25/23 Rx Atorvastatin [Lipitor] 10 mg PO DAILY 08/25/23 08/25/23 History Ketorolac [Toradol] 10 mg PO Q6H PRN 08/25/23 08/25/23 History glipiZIDE [Glucotrol] 5 mg PO AC-BRKFST 08/25/23 08/25/23 History metFORMIN HCL [Glucophage] 1,000 mg PO DAILY 08/25/23 08/25/23 History sitaGLIPtin [Januvia] 100 mg PO DAILY 08/25/23 08/25/23 History Potassium Citrate [Potassium 10 meq PO BID 08/26/23 08/26/23 History Citrate ER] allopurinoL [Zyloprim] 300 mg PO DAILY 08/26/23 08/26/23 History Allergies Allergy/AdvReac Type Severity Reaction Status Date / Time No Known Allergies Allergy Verified 08/18/23 15:08 Surgical - Exam - General no distress, no pain - Eyes normal ocular movement, no pale - ENT normal nares, normal mucosa - Respiratory normal expansion, normal respiratory effort - Abdomen Abdomen: soft, non tender - Psychiatric oriented to time, oriented to person, oriented to place Assessment and Plan Assessment: OR for left-sided ureteroscopy, with holmium laser lithotripsy, stone basketing and stent insertion
--- NOTE | 2023-08-31 12:03 | XR ---
EXAMINATION TYPE: XR KUB DATE OF EXAM: 08/31/2023 11:57 AM CLINICAL INDICATION:Male, 67 years old with history of kidney stones; COMPARISON: CT 08/19/2023 TECHNIQUE: One radiographic view of the abdomen was obtained. FINDINGS: The bowel gas pattern is nonspecific without dilated loops of small or large bowel. There i s no evidence for organomegaly or pneumoperitoneum. The osseous structures are intact. Left renal ca lculi seen on prior CT remain present measuring up to 5 mm. Fecal material and gas are demonstrated t hroughout the colon and rectum. IMPRESSION: Obstructing calculus seen on prior CT not well visualized. Consider CT imaging.
[2023-08-31 12:41] LABS: Glucose,Whole Blood 113 mg/dL (70-110)
[2023-08-31] MEDS ORDERED: SUCCINYLCHOLINE CHLORIDE 200 MG/10 ML VIAL IV ONE (13:26)
[2023-08-31] MEDS ORDERED: ROCURONIUM 10 MG/ML (5 ML VIAL) IV ONE (13:26)
[2023-08-31] MEDS ORDERED: KETOROLAC 15 MG/ML 1 ML VIAL ONE (13:26)
[2023-08-31] MEDS ORDERED: fentaNYL (PF) 50 MCG/ML 2 ML AMP ONE (13:26)
[2023-08-31] MEDS ORDERED: LIDOCAINE 1% INJ 10MG/ML (20 ML MDV) ONE (13:26)
[2023-08-31] MEDS ORDERED: NEOSTIGMINE 1 MG/ML 10 ML VIAL ONE (13:26)
[2023-08-31] MEDS ORDERED: PROPOFOL 10 MG/ML 20 ML VIAL IV ONE (13:26)
[2023-08-31] MEDS ORDERED: PHENYLEPHRINE-0.9% NACL SYG 1,000 MCG/10 ML SYRINGE ONE (13:26)
[2023-08-31] MEDS ORDERED: MIDAZOLAM 2 MG/2 ML VIAL ONE (13:26)
[2023-08-31] MEDS ORDERED: GLYCOPYRROLATE 0.2 MG/ML 2 ML VIAL ONE (13:26)
--- NOTE | 2023-08-31 15:07 | P.OP ---
Date of Procedure: 08/31/23 Preoperative Diagnosis: Left ureteral stone, renal stone Postoperative Diagnosis: Left renal stone, large bladder stone Procedure(s) Performed: Cystoscopy, left ureteroscopy, holmium laser lithotripsy, stone basketing, stent insertion and cystolitholapaxy (<2.5cm) Anesthesia: KING Surgeon: Chaitanya Crow Estimated Blood Loss (ml): 10 Pathology: other (bladder stone, left renal stone) Condition: stable Disposition: PACU Indications for Procedure: This is a 67 yo female with hx of 7 mm left sided ureteral stone. She is symptomatic from her stone. Option of left sided URS vs ESWL was discussed in details. Risk and benefit of each approach was discussed. She agreed to proceed with left sided URS with holmium laser, stone basketting and stent. Aware of risk which include but not limited to bleeding, infection and injury to the ureter. Of note patient also has significant stone burden in the lower pole. discussed It will be difficult to remove lower pole stone with URS, discussed with him the alternative of doing a left-sided PCNL, he declined at this point he wants to observe his lower pole stones. He understood all the risk and agreed to proceed with left-sided ureteroscopy, with holmium laser lithotripsy, stone basketing and stent insertio Operative Findings: Large bladder stone, multiple stones within the mid pole of the kidneys sizable stones were fragmented, smaller stones were basketed Description of Procedure: Patient brought to the operating room, general anesthesia was induced. He was prepped and draped in sterile fashion and placed in dorsal lithotomy position. Cystoscopy fitted with a 21-Khmer sheath was inserted per urethra, cystoscopy was performed which showed a large stone within the bladder, given patient obesity it was difficult to visualize the dome, but remaining bladder within n ormal limits. The prostate was moderately enlarged and obstructive. Using the holmium laser the stone was fragmented, the size of the stone was approximately 1.5 cm. Sizable stone fragments were irrigated out. At this time attention was carried to the left ureteral orifice which was intubated with a sensor wire. Next a 1113 Khmer access sheath was passed over the wire and into the mid ureter. Next a flexible ureteroscope was inserted through the access sheath, ureteroscopy was performed which showed no stones along the course of the ureter. Renoscopy was performed showed multiple large stones within the midpole. Using the holmium laser the stones were fragmented, using the stone basket stone fragments were removed. There was multiple additional mul small stones within the mid pole that were also removed. Repeat renoscopy showed no sizable stones or injury to the kidney, of note patient did have stones in the lower pole I was not able to visualize the lower pole using the ureteroscope given the acute angle of the lower pole calyx. Pullback ureteroscopy was performed showed no injury to the ureter or nay ureteral stones, as ureteroscope was withdrawn and a sensor wire was advanced through. Next a ureteral stent was passed over the wire, the proximal curl was visualized on fluoroscopy and the distal curl was visualized using the cystoscope. The bladder was emptied and into the case. Patient tolerated the procedure well was taken to recovery in stable condition
[2023-08-31 15:23] VITALS: TEMP 97.2
[2023-08-31] MEDS: HYDROmorphone 0.5 MG/0.5 ML SYRINGE IVP PRN ×2 (15:48→16:00)
--- NOTE | 2023-08-31 15:51 | FL ---
EXAMINATION TYPE: FL guidance operating room Intraoperative/procedural fluoroscopic services were pro vided. Total fluoroscopy time is 1 minute 12 seconds with a total of 11 submitted images to PACS. Ple ase see the operative/procedural note for further details. DAP: 2.04 Gycm2
[2023-08-31] MEDS ORDERED: LACTATED RINGERS 1,000 ML IV ONE (16:15)
[2023-08-31 16:51] VITALS: RESP 20
[2023-08-31 17:12] VITALS: BP 129/88; PULSE 90
== END 2023-08-31 18:11 | disposition home or self-care (01) ==
LOC: OR 11:27
PROVIDERS: ATTEND Urology
DX: N20.2 Calculus of kidney with calculus of ureter (principal); N21.0 Calculus in bladder; Z87.442 Personal history of urinary calculi
CPT/HCPCS: 52356; 82365; 74018; C2625; C1769; J2250; J0330; J1100; J2710; J0690; J2405; J2001; J3010; J1885; J2704; J1170; J2371